=== PATIENT | female | born 1980 | race Hispanic/Latino ===

== ENCOUNTER 2016-12-02 11:42 | Emergency (ER) | payer MEDICAID ==
[2016-12-02 11:43] VITALS: BMI 26.6
[2016-12-02 12:08] VITALS: TEMP 98.2
[2016-12-02] MEDS ORDERED: Sodium Chloride 0.9% 1,000 ML IV STA (13:01)
--- NOTE | 2016-12-02 13:07 | ED PDOC ---
Arrival/HPI - General Chief Complaint: Chest Pain Time Seen by Provider: 12/02/16 12:32 Historian: Patient - History of Present Illness Narrative History of Present Illness (Text): 12/02/16 13:07 36 y/o female, psychiatric history including anxiety, allergic to motrin, c/o chest pain and shortness of breath x 2 hours. Pt. is here at the ER stated that she has chest pain and can not breath, no palpitation, no night sweat, no rash, no weight loss, non-radiating, very scared and crying, no change in vision , no other medical or psychological complaints. Past Medical History - Provider Review Nursing Documentation Reviewed: Yes - Infectious Disease Hx of Infectious Diseases: None - Tetanus Immunization Tetanus Immunization: Unknown - Cardiac Hx Cardiac Disorders: No - Pulmonary Hx Respiratory Disorders: No - Neurological Hx Neurological Disorder: Yes Hx Migraine: Yes - HEENT Hx HEENT Disorder: No Hx Blind: No - Renal Hx Renal Disorder: No - Endocrine/Metabolic Hx Endocrine Disorders: No - Hematological/Oncological Hx Blood Disorders: Yes Hx Anemia: Yes (BLOOD TRANSFUSION / JUNE 2013) Hx Blood Transfusion Reaction: No - Integumentary Hx Dermatological Disorder: No - Musculoskeletal/Rheumatological Hx Musculoskeletal Disorders: No Hx Falls: No - Gastrointestinal Hx Gastrointestinal Disorders: No - Genitourinary/Gynecological Hx Genitourinary Disorders: Yes Hx Reproductive Disorders: Yes (MISSED AB) - Psychiatric Hx Psychophysiologic Disorder: Yes Hx Anxiety: Yes Hx Depression: Yes Hx Emotional Abuse: No Hx Physical Abuse: No Hx Substance Use: No - Surgical History Hx Gastric Bypass Surgery: Yes - Anesthesia Hx Anesthesia: Yes Hx Anesthesia Reactions: No Hx Malignant Hyperthermia: No - Suicidal Assessment Feels Threatened In Home Enviroment: No Family/Social History - Physician Review Nursing Documentation Reviewed: Yes Family/Social History: Unknown Family HX Smoking Status: Never Smoked Hx Alcohol Use: No Hx Substance Use: No Hx Substance Use Treatment: No Allergies/Home Meds Allergies/Adverse Reactions: Allergies ibuprofen Allergy (Verified 12/02/16 12:17) SWELLING Home Medications: Home Meds Medication Instructions Recorded Confirmed ALPRAZolam [Xanax] 0.25 mg PO PRN PRN 03/18/16 12/02/16 Venlafaxine [Effexor XR] 75 mg PO DAILY 12/02/16 12/02/16 Review of Systems - Review of Systems Constitutional: absent: Fatigue, Fevers Eyes: absent: Vision Changes ENT: absent: Hearing Changes Respiratory: SOB. absent: Cough, Sputum Cardiovascular: Chest Pain. absent: Palpitations, Edema, Calf Pain Gastrointestinal: absent: Abdominal Pain, Diarrhea, Nausea, Vomiting Neurological: absent: Headache, Dizziness Psychiatric: Anxiety. absent: Depression, Suicidal Ideation Physical Exam Vital Signs Reviewed: Yes Vital Signs Temp Pulse Pulse Resp BP BP Pulse Ox 12/02/16 15:53 71 13 118/69 99 12/02/16 14:55 58 L 14 115/49 L 100 12/02/16 13:31 52 L 13 100/65 100 12/02/16 12:00 70 117/74 12/02/16 11:43 98.2 F 70 40 H 117/74 100 Temperature: Afebrile Blood Pressure: Normal Pulse: Regular Respiratory Rate: Tachypneic Appearance: Positive for: Well-Appearing, Non-Toxic Pain Distress: Moderate Mental Status: Positive for: Alert and Oriented X 3 - Systems Exam Head: Present: Atraumatic, Normocephalic Pupils: Present: PERRL Extroacular Muscles: Present: EOMI Conjunctiva: Present: Normal Mouth: Present: Moist Mucous Membranes Neck: Present: Normal Range of Motion Respiratory/Chest: Present: Clear to Auscultation, Good Air Exchange. No: Respiratory Distress, Accessory Muscle Use Cardiovascular: Present: Regular Rate and Rhythm, Normal S1, S2. No: Murmurs Abdomen: Present: Normal Bowel Sounds. No: Tenderness, Distention, Peritoneal Signs, Rebound, Guarding Back: Present: Normal Inspection Upper Extremity: Present: Normal Inspection. No: Cyanosis, Edema Lower Extremity: Present: Normal Inspection. No: Edema Neurological: Present: GCS=15, Speech Normal, Motor Func Grossly Intact, Gait Normal, Memory Normal Skin: Present: Warm, Dry, Normal Color. No: Rashes Psychiatric: Present: Alert, Oriented x 3, Normal Insight, Normal Concentration , Anxious Medical Decision Making ED Course and Treatment: 12/02/16 13:09 -labs/thyroid panel -ekg -cxr -IVF/ativan -observe and reassess 12/02/16 15:01 -Urine hcg negative -EKG: NSR @ 65 BPM, no ST elevation or depression, no T wave inversion. -Chest xray show no active disease -Labs show no acute findings. -UA show +UTI -Pt. refused PES evaluation -Pt. feels much better, asymptomatic now, observe the patient for 2nd set of troponin. 12/02/16 17:46 -2nd set of troponin is negative, pt. is asymptomatic, will discharge home. -Discharge home with macrobid, stay hydrated, avoid caffeine product, follow up with your own pmd within 2 days, return to the ER for any new or worsening signs or symptoms. - Lab Interpretations Lab Results: 12/02/16 13:00 12/02/16 13:01 Lab Results 12/02/16 17:05: Lactate Dehydrogenase 425, Total Creatine Kinase 79, Troponin I < 0.01 12/02/16 13:30: D-Dimer, Quantitative 0.22 12/02/16 13:08: Free T4 0.89, TSH 3rd Generation 1.99 12/02/16 13:01: Sodium 140, Potassium 4.2, Chloride 101, Carbon Dioxide 28, Anion Gap 15, BUN 13, Creatinine 0.6, Est GFR ( Amer) > 60, Est GFR (Non- Af Amer) > 60, Random Glucose 84, Calcium 9.3, Total Bilirubin 0.4, AST 28, ALT 17, Alkaline Phosphatase 64, Lactate Dehydrogenase 563, Total Creatine Kinase 89 , Troponin I < 0.01, Total Protein 8.0, Albumin 4.6, Globulin 3.4, Albumin/ Globulin Ratio 1.4, Lipase 48 12/02/16 13:01: Urine Color Yellow, Urine Appearance Turbid, Urine pH 7.0, Ur Specific [place] 1.010, Urine Protein Negative, Urine Glucose (UA) Negative, Urine Ketones Negative, Urine Blood Negative, Urine Nitrate Negative, Urine Bilirubin Negative, Urine Urobilinogen 0.2, Ur Leukocyte Esterase Small H, Urine RBC Negative, Urine WBC 0 - 2, Ur Epithelial Cells Many, Urine Bacteria Few 12/02/16 13:00: WBC 6.3, RBC 4.54, Hgb 11.7 L, Hct 36.9, MCV 81.3, MCH 25.8, MCHC 31.7, RDW 13.6, Plt Count 307, MPV 10.3, Gran % 58.3, Lymph % (Auto) 31.6, Lucas % (Auto) 8.5 H, Eos % (Auto) 1.1 L, Baso % (Auto) 0.5, Gran # 3.65, Lymph # 2.0, Lucas # 0.5, Eos # 0.1, Baso # 0.03 I have reviewed the lab results: Yes Interpretation: Abnormal lab values (+UTI) - RAD Interpretation Radiology Orders: 12/02/16 13:01 CHEST PORTABLE [RAD] Stat no active disease Operations Trainer: Radiologist - EKG Interpretation EKG Interpretation (Text): 12/02/16 13:10 : NSR @ 65 BPM, no ST elevation or depression, no T wave inversion. Interpreted by ED Physician: Yes Type: 12 lead EKG - Medication Orders Current Medication Orders: Discontinued Medications Sodium Chloride (Sodium Chloride 0.9%) 1,000 mls @ 999 mls/hr IV .Q1H1M STA Stop: 12/02/16 14:01 Last Admin: 12/02/16 13:14 Dose: 999 mls/hr Lorazepam (Ativan) 1 mg IVP ONCE ONE PRN Reason: Protocol Stop: 12/02/16 13:02 Last Admin: 12/02/16 13:16 Dose: 1 mg - PA / [employer] / Resident Statement / has reviewed & agrees with the documentation as recorded. Disposition/Present on Arrival - Present on Arrival Any Indicators Present on Arrival: No History of DVT/PE: No History of Uncontrolled Diabetes: No Urinary Catheter: No History of Decub. Ulcer: No History Surgical Site Infection Following: None - Disposition Have Diagnosis and Disposition been Completed?: Yes Diagnosis: Panic attack, UTI (urinary tract infection) Disposition: HOME/ ROUTINE Disposition Time: 15:03 Patient Plan: Discharge Patient Problems: Current Active Problems Problem Status Onset Panic attack Acute UTI (urinary tract infection) Acute Condition: IMPROVED Additional Instructions: Discharge home with macrobid, stay hydrated, avoid caffeine product, follow up with your own pmd within 2 days, return to the ER for any new or worsening signs or symptoms. Prescriptions: Nitrofurantoin Macrocrystals [Macrobid] 100 mg PO BID #14 cap Referrals: PCP,NO [Primary Care Provider] - Follow up with primary [facility] [Outside] - Follow up with primary [facility] [Outside] - Follow up with primary Forms: [employer] (Pashto)
[2016-12-02 13:32] LABS: BASO # 0.03 K/mm3 (0.0-2.0); BASO % 0.5 % (0.0-3.0); EOS # 0.1 (0.0-0.7); EOS % 1.1 % (1.5-5.0); GRAN # 3.65 (1.4-6.5); GRAN % 58.3 % (50.0-68.0); HEMATOCRIT 36.9 % (36.0-48.0); LYMPH % 31.6 % (22.0-35.0); MEAN CELL VOLUME 81.3 fl (80.0-105.0); MEAN CORPUSCULAR HEMOGLOBIN 25.8 pg (25.0-35.0); MEAN CORPUSCULAR HGB CONC 31.7 g/dl (31.0-37.0); MEAN PLATELET VOLUME 10.3 fl (7.0-11.0); MONO # 0.5 (0.1-0.6); MONO % 8.5 % (1.0-6.0); RED CELL DISTRIBUTION WIDTH 13.6 % (11.5-14.5); WHITE BLOOD COUNT 6.3 10^3/ul (4.5-11.0)
[2016-12-02 13:34] LABS: URINE BILIRUBIN NEGATIVE (NEGATIVE); URINE BLOOD NEGATIVE (NEGATIVE); URINE GLUCOSE (UA) NEGATIVE (NEGATIVE); URINE KETONE NEGATIVE (NEGATIVE); URINE LEUKOCYTE ESTERASE SMALL Leu/uL (NEGATIVE); URINE PROTEIN NEGATIVE mg/dL (<30 mg/dL); URINE UROBILINOGEN 0.2 E.U./dL (<1 E.U./dL)
--- NOTE | 2016-12-02 13:34 | RAD ---
HISTORY: chest pain COMPARISON: 07/23/2013 FINDINGS: LUNGS: No active pulmonary disease. PLEURA: No significant pleural effusion identified, no pneumothorax apparent. CARDIOVASCULAR: Normal. OSSEOUS STRUCTURES: No significant abnormalities. VISUALIZED UPPER ABDOMEN: Normal. OTHER FINDINGS: None. IMPRESSION: No active disease.
[2016-12-02 13:40] LABS: ALB/GLOB RATIO 1.4 (1.1-1.8); ALKALINE PHOSPHATASE 64 U/L (38-126); ALT/SGPT 17 U/L (7-56); AST/SGOT 28 U/L (14-36); BILIRUBIN,TOTAL 0.4 mg/dL (0.2-1.3); BLOOD UREA NITROGEN 13 mg/dL (7-21); CALCIUM 9.3 mg/dL (8.4-10.5); CARBON DIOXIDE 28 mmol/L (21-33); CHLORIDE 101 mmol/L (98-107); GFR AFRICAN-AMERICAN > 60; GLUCOSE,RANDOM 84 mg/dL (70-110); LIPASE 48 U/L (23-300); POTASSIUM 4.2 mmol/L (3.6-5.0); SODIUM 140 mmol/L (132-148)
[2016-12-02 13:41] LABS: URINE APPEARANCE TURBID (CLEAR); URINE COLOR YELLOW (YELLOW)
[2016-12-02 13:51] LABS: TROPONIN I < 0.01 ng/mL
[2016-12-02 13:56] LABS: FREE T4 0.89 ng/dL (0.78-2.19)
[2016-12-02 14:01] LABS: URINE RBC NEGATIVE /hpf (0-2); URINE WBC 0 - 2 /hpf (0-6)
[2016-12-02 14:02] LABS: URINE BACTERIA FEW (NEG); URINE EPITHELIAL CELLS MANY /hpf (0-5)
[2016-12-02 14:10] LABS: THYROID STIMULATING HORMONE 1.99 mIU/mL (0.46-4.68)
[2016-12-02 15:55] VITALS: O2SAT 99
[2016-12-02 17:42] LABS: TROPONIN I < 0.01 ng/mL
[2016-12-02 18:01] VITALS: BP 103/40; PULSE 89; RESP 20
--- NOTE | 2016-12-02 23:19 | CARD ---
APPROVED REPORT EKG Measurement Heart [id number] ID [id number] <Conclusion> Normal sinus rhythm Normal ECG
== END 2016-12-02 18:07 | disposition home or self-care (01) ==
LOC: ED 11:42
DX: F41.0 Panic disorder [episodic paroxysmal anxiety] (principal); N39.0 Urinary tract infection, site not specified
CPT/HCPCS: 71010; 80053; 81001; 82550; 83615; 83690; 84439; 84443; 84484; 85025; 85378; 87086; 93005; 96374; 99285; J2060; J7040